=== PATIENT | female | born 1935 | race African-American/Black ===

== ENCOUNTER 2018-09-14 11:11 | Inpatient (IN) | payer MEDICAID, OTHER ==
[~2018-09-14] VITALS: Ht 165.1 cm; Wt 53.5 kg
[2018-09-14] MEDS ORDERED: SODIUM CHLORIDE 0.9% 1,000 ML IV ONE (12:30)
[2018-09-14 12:55] LABS: BASOPHILS % 0.6 % (0.0-2.0); EOSINOPHILS % 3.8 % (0.0-5.0); HEMATOCRIT. 39.7 % (36.0-48.0); HEMOGLOBIN. 12.8 g/dL (12.0-16.0); LYMPHOCYTES % 34.3 % (20.0-50.0); MEAN CORPUSCULAR HEMOGLOBIN 27.8 pg (28.0-32.0); MEAN CORPUSCULAR VOLUME 86.1 fL (81.0-99.0); MEAN PLATELET VOLUME 8.4 fl (7.4-10.4); MONOCYTES % 5.1 % (2.0-8.0); NEUTROPHILS % 56.2 % (40.0-76.0); PLATELET 200 x1000/uL (130-400); RED BLOOD CELL COUNT 4.62 mill/uL (4.2-5.4); RED CELL DISTRIBUTION WIDTH 14.4 % (11.6-14.6)
[2018-09-14 12:57] LABS: CHLORIDE 106 mEq/L (98-107)
[2018-09-14 13:03] LABS: ETHANOL BLOOD < 10 mg/dL
[2018-09-14 13:56] LABS: CLARITY URINE CLEAR (CLEAR); COLOR URINE YELLOW (YELLOW); KETONES URINE NEGATIVE (NEGATIVE); LEUKOCYTE ESTERASE URINE 1+ (NEGATIVE); NITRITE URINE NEGATIVE (NEGATIVE); OCCULT BLOOD URINE NEGATIVE (NEGATIVE); PROTEIN URINE NEGATIVE (NEGATIVE); SPECIFIC GRAVITY URINE 1.009 (1.005-1.030); UROBILINOGEN URINE 0.2 E.U./dL (0.2-1.0)
[2018-09-14 15:15] LABS: *AMPHETAMINES SCREEN URINE NEGATIVE (NEGATIVE); *BARBITURATES SCREEN URINE NEGATIVE (NEGATIVE); *BENZODIAZEPINES SCREEN URINE NEGATIVE (NEGATIVE); *COCAINE SCREEN URINE NEGATIVE (NEGATIVE)
[2018-09-14 15:16] LABS: CANNABINOID URINE SCREEN NEGATIVE (NEGATIVE); METHADONE URINE SCREEN NEGATIVE (NEGATIVE); OPIATES URINE SCREEN NEGATIVE (NEGATIVE); PHENCYCLIDINE URINE SCREEN NEGATIVE (NEGATIVE)
[2018-09-14] MEDS ORDERED: CEFTRIAXONE 1 G PREMIX 50 ML IV ONE (16:15)
[2018-09-14 23:00] VITALS: BP 154/73
[2018-09-15] VITALS: BP 154/73
[2018-09-15] MEDS ORDERED: ONDANSETRON HCL 4MG/2ML INJ IV PRN (03:00)
[2018-09-15] MEDS ORDERED: CLONIDINE 0.1MG TABLET PO PRN (03:00)
[2018-09-15] MEDS ORDERED: DIPHENHYDRAMINE 50MG/ML VIAL IV PRN (03:00)
[2018-09-15] MEDS ORDERED: LORAZEPAM 2MG/ML CPJ IV PRN (03:00)
[2018-09-15 04:00] VITALS: BP 127/73
[2018-09-15 08:00] VITALS: BP 122/62
[2018-09-15 12:00] VITALS: BP 112/70
[2018-09-15] MEDS ORDERED: OMEP-265 PO (12:38)
[2018-09-15] MEDS ORDERED: LISI-186 MT (12:38)
[2018-09-15] MEDS ORDERED: AMLO10TA80 MT (12:38)
[2018-09-15 16:00] VITALS: BP 105/63
[2018-09-15] MEDS ORDERED: ENOXAPARIN 40MG/0.4ML SYR SUBCUT SCH (16:00)
[2018-09-15] MEDS ORDERED: MAGNESIUM HYDROXIDE 400MG/5ML 30ML UDC PO PRN (16:00)
[2018-09-15] MEDS: DOCUSATE SODIUM 100MG CAPSULE PO SCH (18:16)
[2018-09-15] MEDS: OMEPRAZOLE 20MG CAPSULE EXTENDED RELEASE PO SCH (18:16)
[2018-09-15 20:00] VITALS: BP 133/76
[2018-09-16] VITALS: BP 147/70
[2018-09-16 04:00] VITALS: BP 140/66
[2018-09-16 08:00] VITALS: BP 121/66
[2018-09-16] MEDS: OMEPRAZOLE 20MG CAPSULE EXTENDED RELEASE PO SCH (09:37)
[2018-09-16] MEDS: DOCUSATE SODIUM 100MG CAPSULE PO SCH (09:37)
[2018-09-16 12:00] VITALS: BP 120/66
[2018-09-16 14:36] VITALS: BP 120/66
[2018-09-17] MEDS ORDERED: FAMOTIDINE 20MG TABLET PO SCH (09:00)
== END 2018-09-16 15:15 | disposition home or self-care (01) | DRG 48 ==
LOC: ER 11:11 → EDBD 17:32 → 7WST 17:32 → EDBEDREQ 17:36 → ENRESERV 22:10 → 7WST 09-15 01:40
PROVIDERS: ADMIT Internal Medicine; ATTEND Internal Medicine
DX: G90.8 Other disorders of autonomic nervous system (principal); G93.41 Metabolic encephalopathy; I95.9 Hypotension, unspecified; M41.9 Scoliosis, unspecified; I10 Essential (primary) hypertension; K21.9 Gastro-esophageal reflux disease without esophagitis; M19.90 Unspecified osteoarthritis, unspecified site; Z82.49 Family history of ischemic heart disease and other diseases of the circulatory system; Z87.891 Personal history of nicotine dependence; Z84.1 Family history of disorders of kidney and ureter
CPT/HCPCS: 36415; 80305; 83880; 84484; 93005; 96361; 96365; 97162; 99285; G0482; J0696; J1650; J7030